=== PATIENT | male | born 1950 | race Caucasian/White ===

== ENCOUNTER 2022-09-26 00:48 | Outpatient (CLI) | payer MEDICARE, OTHER | END 2022-09-26 00:49 | disposition short-term general hospital (02) | LOC: EMS 00:48 | DX: R07.9 Chest pain, unspecified (principal); R42 Dizziness and giddiness; R46.89 Other symptoms and signs involving appearance and behavior; R10.9 Unspecified abdominal pain | CPT/HCPCS: A0425; A0427 ==

== ENCOUNTER 2022-12-18 22:08 | Outpatient (CLI) | payer MEDICARE, OTHER | END 2022-12-18 22:09 | disposition short-term general hospital (02) | LOC: EMS 22:08 | DX: R06.02 Shortness of breath (principal); R07.89 Other chest pain; R20.2 Paresthesia of skin | CPT/HCPCS: A0425; A0429 ==